=== PATIENT | female | born 1930 | race African-American/Black ===

== ENCOUNTER 2018-03-13 17:53 | Inpatient (IN) | payer MEDICARE, OTHER ==
[~2018-03-13] VITALS: Ht 167.6 cm; Wt 108.9 kg
[2018-03-13] MEDS ORDERED: SODIUM CHLORIDE 0.9% 1,000 ML IV ONE (19:18)
[2018-03-13] MEDS ORDERED: ONDANSETRON HCL 4MG/2ML VIAL IV STA (19:18)
[2018-03-13 19:26] LABS: BASOPHILS % 1.2 % (0.0-2.0); EOSINOPHILS % 2.3 % (0.0-5.0); HEMATOCRIT. 36.1 % (36.0-48.0); HEMOGLOBIN. 11.4 g/dL (12.0-16.0); MEAN CORPUSCULAR VOLUME 72.6 fL (81.0-99.0); MEAN PLATELET VOLUME 8.1 fl (7.4-10.4); MONOCYTES % 8.4 % (2.0-8.0); NEUTROPHILS % 53.1 % (40.0-76.0); PLATELET 278 x1000/uL (130-400); RED BLOOD CELL COUNT 4.98 mill/uL (4.2-5.4)
[2018-03-13 19:29] LABS: CHLORIDE 108 mEq/L (98-107)
[2018-03-13] MEDS ORDERED: CLONIDINE 0.2MG TABLET PO ONE (19:30)
[2018-03-13 19:31] LABS: PROTHROMBIN TIME 10.3 sec (9.1-11.1)
[2018-03-13 19:33] LABS: ETHANOL BLOOD < 10 mg/dL
[2018-03-13 19:37] LABS: AMMONIA 31 uMol/L (<32)
[2018-03-13 19:38] LABS: CREATINE KINASE 57 IU/L (26-192)
[2018-03-13 20:46] LABS: CLARITY URINE CLEAR (CLEAR); COLOR URINE YELLOW (YELLOW); KETONES URINE NEGATIVE (NEGATIVE); LEUKOCYTE ESTERASE URINE TRACE (NEGATIVE); NITRITE URINE NEGATIVE (NEGATIVE); OCCULT BLOOD URINE NEGATIVE (NEGATIVE); PROTEIN URINE TRACE (NEGATIVE); SPECIFIC GRAVITY URINE 1.014 (1.005-1.030); UROBILINOGEN URINE 0.2 E.U./dL (0.2-1.0)
[2018-03-13 21:06] LABS: *AMPHETAMINES SCREEN URINE NEGATIVE (NEGATIVE); *BARBITURATES SCREEN URINE NEGATIVE (NEGATIVE); *BENZODIAZEPINES SCREEN URINE NEGATIVE (NEGATIVE); *COCAINE SCREEN URINE NEGATIVE (NEGATIVE)
[2018-03-13 21:07] LABS: CANNABINOID URINE SCREEN NEGATIVE (NEGATIVE); METHADONE URINE SCREEN NEGATIVE (NEGATIVE); OPIATES URINE SCREEN NEGATIVE (NEGATIVE); PHENCYCLIDINE URINE SCREEN NEGATIVE (NEGATIVE)
[2018-03-13 21:54] LABS: T4 FREE 1.19 ng/dL (0.76-1.46)
[2018-03-14] MEDS ORDERED: DIPHENHYDRAMINE 50MG/ML VIAL IV PRN (00:30)
[2018-03-14] MEDS ORDERED: ONDANSETRON HCL 4MG/2ML VIAL IV PRN (00:30)
[2018-03-14] MEDS ORDERED: ACETAMINOPHEN 325MG TABLET PO PRN (00:30)
[2018-03-14] MEDS ORDERED: LORAZEPAM 2MG/ML CPJ IV PRN (00:30)
[2018-03-14] MEDS ORDERED: MAGNESIUM/ALUMINUM HYDROXIDE/SIMETHICONE 30ML UDC PO PRN (00:30)
[2018-03-14 02:45] VITALS: BP 144/50
[2018-03-14 03:28] VITALS: BP 144/50
[2018-03-14 05:00] VITALS: BP 147/69
[2018-03-14] MEDS: SODIUM CHLORIDE 0.9% INJ 3ML FLUSH IVF SCH ×2 (05:49→14:34)
[2018-03-14] MEDS ORDERED: LEVETIRACETAM 500 MG in SODIUM CHLORIDE 0.9% 100 ML IV SCH (06:00)
[2018-03-14] MEDS: VERAPAMIL HCL 40MG TABLET PO SCH ×2 (06:35→14:00)
[2018-03-14] MEDS ORDERED: LEVOTHYROXINE SODIUM 50MCG TABLET PO SCH (07:20)
[2018-03-14 08:00] VITALS: BP 132/57
[2018-03-14] MEDS ORDERED: LAMOTRIGINE 100MG TABLET PO SCH (09:00)
[2018-03-14 12:00] VITALS: BP 155/62
[2018-03-14 16:03] VITALS: BP 129/48
== END 2018-03-14 17:13 | disposition home or self-care (01) | DRG 101 ==
LOC: ER 17:53 → 6WST 21:46 → ENRESERV 23:16
PROVIDERS: ADMIT Internal Medicine; ATTEND Internal Medicine
DX: G40.909 Epilepsy, unspecified, not intractable, without status epilepticus (principal); I69.354 Hemiplegia and hemiparesis following cerebral infarction affecting left non-dominant side; I10 Essential (primary) hypertension; E03.9 Hypothyroidism, unspecified; Z79.899 Other long term (current) drug therapy
CPT/HCPCS: 36415; 70450; 71045; 80053; 80305; 81003; 82140; 82550; 83880; 84439; 84443; 84481; 84484; 85025; 85610; 93005; 96374; 99285; G0482; J1953; J2405; J7030; J7050